=== PATIENT | female | born 1975 ===

== ENCOUNTER 2019-09-04 09:16 | Outpatient (REF) | payer MEDICAID, SELFPAY ==
[2019-09-04 21:58] LABS: HCT 36.2 % (36.0-46.0); HGB 11.6 g/dL (12.0-15.5); Mean Corpuscular Volume 84.4 fL (80-95); Mean Platelet Volume 11.5 fL (8.0-11.0); Platelet Count 230 x1000/uL (130-400); RBC 4.29 m/cumm (4.00-5.20); RBC Distribution Width 14.4 % (11.7-14.6); White Blood Cell Count 4.83 k/cumm (4.4-10.8)
[2019-09-04 22:17] LABS: TSH 2.42 uIU/mL (0.36-3.74)
[2019-09-08 13:44] LABS: Iron 46 ug/dL (50-175); Total Iron Binding Capacity 352 ug/dL (250-450); Transferrin Sat 13 % (15-50)
[2019-09-08 14:30] LABS: Ferritin 6 ng/mL (8-388)
== END 2019-09-04 09:36 ==
LOC: NCHCN 09:16
PROVIDERS: PCP Nurse Practitioner Family; Visit Provider Registered Nurse
DX: R00.2 Palpitations (principal); R07.9 Chest pain, unspecified; D64.9 Anemia, unspecified
CPT/HCPCS: 85027; 82728; 83540; 83550; 84443

== ENCOUNTER 2020-01-21 17:52 | Outpatient (REF) | payer MEDICAID, SELFPAY ==
[2020-01-21 22:48] LABS: Abs Immature Grans 0.02 k/cumm (0.0-0.09); Absolute Basophil Count 0.01 k/cumm (0.0-0.2); Absolute Eosinophil Count 0.16 k/cumm (0.0-0.7); Absolute Lymphocyte Count 1.51 k/cumm (1.2-3.4); Absolute Monocyte Count 0.32 k/cumm (0.11-0.7); Absolute Neutrophil Count 2.95 k/cumm (1.2-6.7); Basophils % 0.2; Eosinophils % 3.2; HGB 12.8 g/dL (12.0-15.5); Immature Grans % 0.4 %; Lymphocytes % 30.4; Mean Corp. HGB Concentration 33.7 g/dL (32.0-36.0); Mean Corpuscular Hemoglobin 29.6 pg (27.0-33.0); Mean Corpuscular Volume 87.8 fL (80-95); Mean Platelet Volume 11.2 fL (8.0-11.0); Monocytes % 6.4; Neutrophils % 59.4; Platelet Count 148 x1000/uL (130-400); RBC 4.33 m/cumm (4.00-5.20); RBC Distribution Width 12.8 % (11.7-14.6); White Blood Cell Count 4.97 k/cumm (4.4-10.8)
[2020-01-21 23:19] LABS: Ferritin 68 ng/mL (8-252)
== END 2020-01-21 18:12 ==
LOC: NCHCN 17:52
PROVIDERS: PCP Nurse Practitioner Family; Visit Provider Nurse Practitioner Community Health
DX: D50.8 Other iron deficiency anemias (principal)
CPT/HCPCS: 82728; 85025

== ENCOUNTER 2020-10-07 16:01 | Outpatient (REF) | payer MEDICAID, SELFPAY ==
[2020-10-11 21:55] LABS: SARS-CoV-2 RNA Undetected (Undetected); SARS-CoV-2 Specimen Source Nasal
== END 2020-10-07 16:21 ==
LOC: NCHCN 16:01
PROVIDERS: PCP Nurse Practitioner Family; Visit Provider Registered Nurse
DX: J06.9 Acute upper respiratory infection, unspecified (principal)
CPT/HCPCS: U0003

== ENCOUNTER 2021-01-10 22:24 | Outpatient (REF) | payer MEDICAID, SELFPAY | END 2021-01-10 22:25 | disposition home or self-care (01) | LOC: NCHCN 22:24 | PROVIDERS: PCP Nurse Practitioner Family; Visit Provider Registered Nurse | DX: R19.5 Other fecal abnormalities (principal); B80 Enterobiasis | CPT/HCPCS: 87505; 87177 ==

== ENCOUNTER 2021-01-12 22:38 | Outpatient (REF) | payer MEDICAID, SELFPAY | END 2021-01-12 22:39 | disposition home or self-care (01) | LOC: NCHCN 22:38 | PROVIDERS: PCP Nurse Practitioner Family; Visit Provider Registered Nurse | DX: R19.5 Other fecal abnormalities (principal); B80 Enterobiasis | CPT/HCPCS: 87177 ==

== ENCOUNTER 2021-01-13 16:23 | Outpatient (REF) | payer MEDICAID, SELFPAY | END 2021-01-13 16:24 | disposition home or self-care (01) | LOC: NCHCN 16:23 | PROVIDERS: PCP Nurse Practitioner Family; Visit Provider Registered Nurse | DX: R19.5 Other fecal abnormalities (principal); B80 Enterobiasis | CPT/HCPCS: 87177 ==

== ENCOUNTER 2021-03-03 15:58 | Outpatient (REF) | payer MEDICAID, SELFPAY ==
[2021-03-05 15:03] LABS: COVID-19 RT-PCR UVMMC Result Negative (Negative)
== END 2021-03-03 15:59 | disposition home or self-care (01) ==
LOC: NCHCN 15:58
PROVIDERS: PCP Nurse Practitioner Family; Visit Provider Registered Nurse
DX: Z20.822 Contact with and (suspected) exposure to COVID-19 (principal); J06.9 Acute upper respiratory infection, unspecified
CPT/HCPCS: U0003

== ENCOUNTER 2022-08-01 19:07 | Outpatient (REF) | payer MEDICAID, SELFPAY ==
[2022-08-01 14:39] LABS: Abs Immature Grans 0.01 10^3/uL (0.0-0.06); Absolute Basophil Count 0.01 10^3/uL (0.0-0.2); Absolute Eosinophil Count 0.05 10^3/uL (0.0-0.7); Absolute Lymphocyte Count 1.03 10^3/uL (1.2-3.4); Basophils % 0.2; Eosinophils % 1.2; HCT 40.1 % (36.0-46.0); HGB 13.8 g/dL (11.2-15.7); Immature Grans % 0.2; Lymphocytes % 24.8; MCH 30.5 pg (27.0-33.0); MCHC 34.4 % (32.0-36.0); MCV 89 fL (80-95); MPV 11.8 fL (8.0-11.0); Monocytes % 7.2; Neutrophils % 66.4; Platelet Count 160 10^3/uL (130-400); RBC 4.53 10^6/uL (3.93-5.22); RDW 12.6 % (11.7-14.6); RDW-SD 41.1 fL; WBC 4.15 10^3/uL (4.4-10.8)
[2022-08-01 14:43] LABS: Absolute Neutrophil Count 2.76 10^3/uL (1.2-6.7)
[2022-08-01 14:56] LABS: Iron 157 ug/dL (50-170); Total Iron Binding Capacity 290 ug/dL (250-450); Transferrin Sat 54 % (15-50)
[2022-08-01 15:22] LABS: ALT 35 U/L (14-59); AST 34 U/L (15-37); Albumin 4.3 g/dL (3.4-5.0); Alkaline Phosphatase 46 U/L (46-116); Anion Gap 8.5 mmol/L (3-11); BUN 15 mg/dL (7-18); Bilirubin, Total 1.2 mg/dL (0.2-1.0); CO2 27.5 mmol/L (21.0-32.0); CREATININE 0.9 mg/dL (0.55-1.02); Calculated LDL 105 mg/dL (<100); Chloride 97 mmol/L (98-107); Cholesterol 220 mg/dL (<200); Estimated GFR 78.86 (mL/min/1.73m2); Ferritin 81 ng/mL (8-252); Glucose 81 mg/dL (74-106); HDL Cholesterol 106 mg/dL (40-60); Sodium 133 mmol/L (136-145); TSH 1.94 uIU/mL (0.36-3.74); Total Protein 8.4 g/dL (6.4-8.2); Triglyceride 49 mg/dL (<150); Vitamin B12 504 pg/mL (193-986)
[2022-08-01 16:15] LABS: FREE T4 0.89 ng/dL (0.76-1.46)
[2022-08-01 22:19] LABS: T3, Total 102 ng/dL (97-169)
[2022-08-02 15:11] LABS: IgA 149 mg/dL (85-499); Interpretation (See Note); Tissue Transglutaminase IgA <1.2 U/mL (<4.0)
[2022-08-03 05:13] LABS: Vitamin D 25 Total 61.8 ng/mL (30-100)
== END 2022-08-01 19:08 | disposition home or self-care (01) ==
LOC: NCHCN 19:07
PROVIDERS: PCP Nurse Practitioner Family; Visit Provider Family Medicine
DX: D50.8 Other iron deficiency anemias (principal); B80 Enterobiasis; R10.9 Unspecified abdominal pain; R63.4 Abnormal weight loss; R14.0 Abdominal distension (gaseous)
CPT/HCPCS: 80053; 80061; 82306; 82784; 83516; 82607; 82728; 83540; 83550; 84439; 84443; 84480; 85025

== ENCOUNTER 2022-08-29 15:52 | Outpatient (REF) | payer MEDICAID, SELFPAY ==
--- NOTE | 2022-08-29 15:03 | PAPFT_PTH ---
PATIENT: Blanca Saini LOC: [facility]#:[id number] AGE/SX: 47/F ROOM: RE08/29/[address]: Bev Monteiro : 1975 BED: DIS: 08/29/2022 SPEC #: [id number] RECD: 08/30/22 12:58 STATUS: SHINCherry REQ #: [id number] MICHELLE: 08/29/22 15:[address]: Bev Monetiro DEPT: [facility] Cytology RECD BY: Elyssa Akhtar ENTERED: 08/30/22 12:59 SP TYPE: PAPFT OTHR DR: Tessa Smith Tissues: 1 - CX/ENDOCX FOR PAP SMEARS Procedures: PAP THIN PREP/[facility] Screening HPV DNA PROBE Comments: [id number]
== END 2022-08-29 15:53 | disposition home or self-care (01) ==
LOC: NCHCN 15:52
PROVIDERS: PCP Nurse Practitioner Family; Visit Provider Family Medicine
DX: Z12.4 Encounter for screening for malignant neoplasm of cervix (principal); R87.618 Other abnormal cytological findings on specimens from cervix uteri; Z11.51 Encounter for screening for human papillomavirus (HPV)
CPT/HCPCS: 88142; 87624

== ENCOUNTER 2022-10-02 22:21 | Outpatient (REF) | payer MEDICAID, SELFPAY | END 2022-10-02 22:22 | disposition home or self-care (01) | LOC: LBN 22:21 | PROVIDERS: PCP Nurse Practitioner Family; Visit Provider Naturopath | DX: B89 Unspecified parasitic disease (principal) | CPT/HCPCS: 87177 ==

== ENCOUNTER 2022-12-05 21:53 | Outpatient (REF) | payer MEDICAID, SELFPAY | END 2022-12-05 21:54 | disposition home or self-care (01) | LOC: LBN 21:53 | PROVIDERS: PCP Nurse Practitioner Family; Visit Provider Naturopath | DX: R63.4 Abnormal weight loss (principal); B80 Enterobiasis; R19.5 Other fecal abnormalities | CPT/HCPCS: 87177 ==

== ENCOUNTER 2024-07-23 14:54 | Outpatient (REF) | payer BC, SELFPAY ==
[2024-07-25 12:33] LABS: HSV 1 DNA Result Positive (Negative); HSV 2 DNA Result Negative (Negative); Varicella Zoster DNA Result Negative (Negative)
== END 2024-07-23 14:55 | disposition home or self-care (01) ==
LOC: LBN 14:54
PROVIDERS: PCP Nurse Practitioner Family; Visit Provider Physician Assistant Medical
DX: Z21 Asymptomatic human immunodeficiency virus [HIV] infection status (principal)
CPT/HCPCS: 87529; 87798